=== PATIENT | female | born 1955 | race Caucasian/White ===

== ENCOUNTER 2016-10-12 11:47 | Day surgery (SDC) | payer OTHER ==
[~2016-10-12] VITALS: Ht 174 cm; Wt 180.0 kg
[~2016-10-12 11:47] MED LIST: HYDR25SU31 RC; Lactated Ringer's 1,000 ML IV ONE
[2016-10-12] MEDS ORDERED: Propofol 10,000 mCg/mL 20 mL Inj ONE (11:48)
[2016-10-12] MEDS ORDERED: fentaNYL-PF 50 mCg/mL 2 mL Inj ONE (11:48)
[2016-10-12 12:19] VITALS: BP 132/66; PULSE 74; RESP 22; O2SAT 95
--- NOTE | 2016-10-12 12:19 | PCM.HPANE ---
Patient Data Surgeon Admitting Provider: Attending Provider:Steffen Moreno MD Primary Care Physician:Mariela Dixon Other Provider:Davie Del Rosario Anesthesia Reason for Visit BRBPR Ht/WT & BMI Body Mass Index Allergies Coded Allergies: banana (Verified Allergy, Severe, THROAT SWELLING, 10/11/16) codeine (Verified Allergy, Severe, HIVES, 10/11/16) pseudoephedrine (Verified Allergy, Mild, SLEEPY, 10/11/16) Medications Discontinued Reported Medications Hydrocortisone Acetate (Anusol-Hc)25 Mg Supp.rect25 Mg RC BID 10/11/16 History History of ENT Problems?: No Hx of Heart Problems?: No Hx of Respiratory Problem?: No Hx Neurologic Problems?: No Hx of GI Problems?: Yes Gastrointestinal History: Positive for:: Rectal Bleeding Hx of Problems?: No Hx Any Other Health Problems?: Yes Other History/Comment Morbid Obesity Stop/Bang Treated for Sleep Apnea?: No Do You Have a CPAP Machine?: No S-Snoring: Do You Snore Loudly: Yes P-Blood Pressure: treated: No B- Body Mass Index > 35 kg/m2: Yes A- Age over 50: Yes N- Neck Large Circumference: Yes G- Gender Male: No JEAN PAUL Risk Assessment: High Risk, =/>3 Yes JEAN PAUL Category 2: Yes Risk Assessment Category Category 1A: Patient has history of documented sleep apnea, and HAS NOT received any narcotic, sedative or anesthesia administration during this stay. Category 1B: Patient has history of documented sleep apnea, and HAS received any narcotic , sedative or anesthesia administration during this stay Category 2: Patient has SUSPECTED Obstructive Sleep Apnea, and HAS received any narcotic , sedative or anesthesia administration during this stay. Category 3: Patient has SUSPECTED Obstructive Sleep Apnea and HAS NOT received narcotic, sedative or anesthesia administration during this stay. Category 4: Outpatient in Procedural Areas with known sleep apnea or who screen positive for High Risk via the STOP/BANG questionnaire. Exam Exam General Appearance: Alert, Oriented X3, Cooperative, No Acute Distress HEENT/AIRWAY: MP 2 Lungs: Clear to Auscultation, Normal Air Movement Heart: Exam Unremarkable, Regular Rate/Rhythm, No Murmurs/Rubs/Gallops Plan Impression Patient chart reviewed, patient interviewed and anesthestic plan with risks, benefits, and alternatives discussed, and informed consent obtained. ASA Physical Status: ASA3 Severe Disease Anesthetic Plan: MAC Bene/Risks/Altern/Consents: Yes HP Complete Prior to Induction: Yes Jamil Garcia MD Oct 12, 2016 12:19
[2016-10-12] MEDS ORDERED: Lactated Ringer's 1,000 ML IV SCH (14:14)
[2016-10-12] MEDS ORDERED: Ondansetron 2 mg/mL 2 mL Inj IVPUSH PRN (14:15)
[2016-10-12] MEDS ORDERED: MetoCLOpramide 5 mg/mL 2 mL Inj IVPUSH PRN (14:15)
[2016-10-12 14:39] VITALS: PULSE 70; RESP 16; O2SAT 96
--- NOTE | 2016-10-12 14:46 | PCM.ANEP1 ---
Post Anesthesia Phase 1 PACU Phase 1 Assessment Vital Signs Vital Signs Date Time Temp Pulse Resp B/P Pulse Ox O2 Delivery O2 Flow Rate FiO2 10/12/16 14:39 70 16 96 Room Air 10/12/16 12:19 36.4 74 22 132/66 95 Room Air Anesthetic Administered: MAC Level of Alertness: Awake, talking OAKLEY's with Equal Strength: Yes Pain: No Nausea or Vomiting: No Oxygen Delivery: Room Air Lungs: Clear to Auscultation, Normal Air Movement Dermatome Level: Full Sensation Jamil Garcia MD Oct 12, 2016 14:46
--- NOTE | 2016-10-12 14:51 | PCM.ANEP2 ---
Post Anesthesia Evaluation ASA/CMS Post Anesthesia VS in Patient's Normal Range?: Yes Resp Stable; Airway Patent?: Yes CV Function & Hydration Stable: Yes Mental Status Recovered?: Yes Pain control Satisfactory?: Yes N/V Control Satisfactory?: Yes Jamil Garcia MD Oct 12, 2016 14:51
[2016-10-12 14:57] VITALS: BP 154/76; PULSE 73; RESP 14; O2SAT 99
--- NOTE | 2016-10-12 15:06 | ENDO ---
[address] [address] ENDOSCOPY PROCEDURE PATIENT: BRENDA BRONSON : 1955 MR#: [id number] ADMIT: 10/12/2016 JOB ID: [id number] DATE OF SERVICE: 10/12/2016 PRIMARY PROVIDER: MARIA ANTONIA Larsen. PROCEDURE: Colonoscopy with hot snare polypectomies. INDICATIONS: A 61-year-old female with some intermittent red blood per rectum. She has not had any since August. EQUIPMENT: [id number]. SEDATION: Monitored anesthesia as provided by Dr. Jamil aGrcia. COMPLICATIONS: None identified. BOWEL PREPARATION: Fair. PROCEDURE INFORMATION: After the risks and benefits were explained, written and verbal informed consent was obtained. The patient was brought into the endoscopy suite and placed into the left lateral decubitus position. Sedation was achieved using the above-stated medications with the addition of oxygen via nasal cannula. A digital rectal examination was accomplished and did not reveal any significant pathology apart from some mild internal external nonbleeding, nonthrombosed hemorrhoids. The scope was introduced into the rectum and advanced under direct visualization to cecum as identified by the appendiceal orifice and ileocecal valve. The scope was slowly withdrawn to carefully examine the mucosa for any defects or lesions. Multiple direct views were made through the dentate line for exclusion of pathology. The colon was decompressed. The scope removed from the patient who tolerated the procedure well. FINDINGS: There were three polyps ranging in size from 5-8 mm. Each of these was removed with hot snare polypectomy. I did not see any other significant pathology throughout. Difficult challenging to finally arrive in cecum. The patient was able to cooperate during the procedure and become completely supine which helped. ENDOSCOPIC DIAGNOSES: 1. Internal and external nonbleeding, nonthrombosed hemorrhoids. 2. Three colon polyps. RECOMMENDATIONS: 1. Await histopathology. 2. Repeat colonoscopy with anesthesia in three years. 3. For any recurrence of hemorrhoidal irritation and/or bleeding, I would recommend intermittent warm Epsom salt baths and even potentially a short course of Anusol HC versus [id number] Preparation H suppository therapy.
--- NOTE | 2016-10-19 16:17 | PATH ---
SURGICAL PATHOLOGY Attending Physician:Olga Lidia Beverly CASE STATUS: Signed Out * Amended * PATIENT NAME: BRENDA BRONSON PID: [id number] : 1955 DATE COLLECTED:10/12/2016 00:00 SPECIMEN: Colon, Biopsy CLINICAL HISTORY: BLOOD IN STOOL 1). COLON POLYPS FINAL DIAGNOSIS: Colon Polyps, Biopsies: Portions of tubular adenoma x3; negative for high-grade dysplasia. Superficial portion of colorectal mucosa x 1 with lymphoid aggregates and electrocautery artifact. ICD10 K63.5 This case was reviewed and interpreted by Dr. Trish Khan. The final diagnosis is unchanged. This amendment is issued in order for the report to cross the interface and be available in the hospital electronic medical record. INTRAOP CONSULT DIAGNOSIS: The specimen is received in one formalin filled container labeled with the patient's name, sublabeled "colon polyps" and consists of 4 portions of tissue or debris which aggregate to 0.6 x 0.5 x 0.3 CM. The specimen is entirely submitted in one cassette. 10/13/2016 [facility] ICD-9 CODES: CPT CODES: 1: 19461 AMENDMENT(S): Amended: 10/19/2016 by Carole Posey Reason:Miscellaneous The final diagnosis is unchanged. This amendment is issued in order for the report to cross the interface and be available in the hospital electronic medical record. Previous Signout Date: 10/14/2016 Electronically Signed Out Ramya Roque MD [facility] [address], [place] [address] Technical component performed at [facility], [address] [place] [address] Ave[address], [place], [address]
== END 2016-10-12 23:59 | disposition home or self-care (01) ==
LOC: END 11:47
PROVIDERS: ATTEND Internal Medicine Gastroenterology
DX: D12.6 Benign neoplasm of colon, unspecified (principal); K64.8 Other hemorrhoids; K64.4 Residual hemorrhoidal skin tags; E66.01 Morbid (severe) obesity due to excess calories; Z68.43 Body mass index [BMI] 50.0-59.9, adult; M19.90 Unspecified osteoarthritis, unspecified site; E78.00 Pure hypercholesterolemia, unspecified; F32.9 Major depressive disorder, single episode, unspecified
CPT/HCPCS: 45385; 88305; J2250; J3010; J7120